=== PATIENT | female | born 1995 | race Caucasian/White ===

== ENCOUNTER 2017-02-20 15:49 | Emergency (ER) | payer BC, OTHER ==
[2017-02-20 16:33] VITALS: BP 110/70
--- NOTE | 2017-02-20 17:16 | UC ---
Throat Pain/Nasal Tremaine HPI - HPI Summary HPI Summary: PT C/O FATIGUE, ST, MILD BL EAR ACHE, NASAL/SINUS CONGESTION, TENDER CERVICAL AND AXILARY LAD. NO COUGH, F/C/S, MYALGIAS, PURVIS. - History of Current Complaint Chief Complaint: UCGeneralIllness Stated Complaint: ST/[place]S Time Seen by Provider: 02/20/17 16:38 Hx Obtained From: Patient Hx Last Menstrual Period: 01/31/17 ?: No Onset/Duration: Gradual Onset, Lasting Days - 2 Severity: Mild Pain Intensity: 2 Cough: None - MINIMAL Associated Signs & Symptoms: Positive: Dysphagia - MINIMAL, Sinus Discomfort, Nasal Discharge. Negative: Fever, Vomiting, Rash - Allergies/Home Medications Allergies/Adverse Reactions: Allergies Allergy/AdvReac Type Severity Reaction Status Date / Time Penicillins Allergy Rash Verified 02/20/17 16:26 Home Medications: Home Medications Acetaminophen [Tylenol] 2 tab PO Q4HR PRN 02/20/17 [History Confirmed 02/20/17] PMH/Surg Hx/FS Hx/Imm Hx Previously Healthy: Yes - Surgical History Surgical History: None - Family History Known Family History: Positive: Hypertension, Diabetes, Other - dyslipidemia - Social History Occupation: Employed Full-time Alcohol Use: None Substance Use Type: None Smoking Status (MU): Never Smoked Tobacco - Immunization History Most Recent Influenza Vaccination: Not UTD Review of Systems Constitutional: Fatigue Skin: Negative Eyes: Negative ENT: Sore Throat - MILD, Ear Ache - MILD PRESSURE, Nasal Discharge, Other Respiratory: Cough - JUST STARTING, MINIMAL Cardiovascular: Negative Gastrointestinal: Negative Genitourinary: Negative Motor: Negative Neurovascular: Negative Musculoskeletal: Negative Neurological: Negative Psychological: Negative All Other Systems Reviewed And Are Negative: Yes Physical Exam Triage Information Reviewed: Yes Appearance: Well-Appearing, No Pain Distress, Well-Nourished Vital Signs: Initial Vital Signs Temp 98.3 F 02/20/17 16:27 Pulse 80 02/20/17 16:27 Resp 14 02/20/17 16:27 BP 110/70 02/20/17 16:27 Pulse Ox 100 02/20/17 16:27 Vital Signs Reviewed: Yes Eyes: Positive: Conjunctiva Clear. Negative: Discharge ENT: Positive: Hearing grossly normal, Pharyngeal erythema, Nasal congestion, Nasal drainage, TMs normal, Tonsillar swelling - MILD, Other:. Negative: Tonsillar exudate, Trismus, Muffled/hoarse voice Neck: Positive: Supple, Tenderness @ - NODES, Enlarged Nodes @ - AXILLARY AND CERVICAL Respiratory: Positive: Lungs clear, Normal breath sounds, No respiratory distress, No accessory muscle use Cardiovascular: Positive: RRR, No Murmur Abdomen Description: Positive: Nontender, Soft. Negative: Distended, Guarding Bowel Sounds: Positive: Present Musculoskeletal Exam: Normal Neurological Exam: Normal Psychological Exam: Normal Psychological: Positive: Age Appropriate Behavior Skin Exam: Normal Throat Pain/Nasal Course/Dx - Differential Dx/Diagnosis Differential Diagnosis/HQI/PQRI: Mononucleosis, Pharyngitis, Sinusitis, Tonsillitis, URI Provider Diagnoses: URI, LAD Discharge - Discharge Plan Condition: Stable Disposition: HOME
[2017-02-20 19:23] LABS: EBV Response YES
[2017-02-20 19:28] LABS: Hematocrit 35 % (35-47); Hemoglobin 11.3 g/dl (12.0-16.0); Mean Corpuscular HGB Conc 33 g/dl (31-36); Mean Corpuscular Hemoglobin 25 pg (27-31); Mean Corpuscular Volume 78 fL (80-97); Mean Platelet Volume 8 um3 (7.4-10.4); Red Blood Count 4.47 10^6/ul (4.0-5.4); Red Cell Distribution Width 15 % (10.5-15); White Blood Count 9.6 10^3/ul (3.5-10.8)
[2017-02-20 19:54] LABS: Mono Internal Control QC Line Present
[2017-02-20 20:42] LABS: Erythrocyte Sed Rate 15 mm/Hr (0-14)
== END 2017-02-20 17:50 | disposition home or self-care (01) ==
LOC: UCCORT 15:49
DX: J06.9 Acute upper respiratory infection, unspecified (principal); R59.0 Localized enlarged lymph nodes; Z88.0 Allergy status to penicillin
CPT/HCPCS: 36415; 85025; 85652; 86141; 86308; 86664; 86665; 87651; 99211; G0463